=== PATIENT | female | born 1980 | race Caucasian/White ===

== ENCOUNTER 2019-08-21 13:18 | Emergency (ER) | payer OTHER ==
[~2019-08-21] VITALS: Ht 157.5 cm; Wt 148.3 kg
[2019-08-21 13:23] VITALS: Ht 157.5 cm; Wt 148.3 kg
[2019-08-21 16:31] LABS: BASOPHIL % 0.3 % (0-2); PLATELET COUNT 348 x10^3mcL (130-400); RED CELL DISTRIBUTION WIDTH 14.1 % (11.5-14.5)
[2019-08-21 16:46] LABS: CALCIUM 8.7 mg/dL (8.5-10.1); CARBON DIOXIDE 31.2 mmol/L (21-32); CHLORIDE SERUM 107 mmol/L (98-107); CREATININE SERUM 0.7 mg/dL (0.6-1.0); GFR1 > 60 mL/min; GLUCOSE SERUM 110 mg/dL (74-106); POTASSIUM SERUM 4.2 mmol/L (3.5-5.1); SODIUM SERUM 144 mmol/L (136-145)
[2019-08-21 16:51] LABS: ALKALINE PHOSPHATASE 100 U/L (46-116); ALT/SGPT 48 U/L (14-59); AST/SGOT 27 U/L (15-37); BILIRUBIN TOTAL 0.18 mg/dL (0.20-1.00); TOTAL PROTEIN, SERUM 7.7 g/dL (6.4-8.2)
[2019-08-21 16:56] LABS: ALBUMIN 3.1 g/dL (3.4-5.0)
[2019-08-21 17:46] VITALS: BP 120/75
== END 2019-08-21 17:46 | disposition home or self-care (01) ==
LOC: ED 13:18
PROVIDERS: Emergency Medicine
DX: M17.12 Unilateral primary osteoarthritis, left knee (principal)
CPT/HCPCS: 36415; 83880